=== PATIENT | male | born 1945 | race Two or more races ===

== ENCOUNTER 2025-03-17 01:30 | Inpatient (IN) | payer MEDICARE, SELFPAY ==
[2025-03-17] VITALS (13 sets, daily range): BP systolic 114–139; BP diastolic 58–87; PULSE 62–76; RESP 12–20; TEMP 36.3–37.1; O2SAT 97–100; BMI 23.4
--- NOTE | 2025-03-17 01:34 | EKG_ITS ---
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
--- NOTE | 2025-03-17 01:54 | PD.EDABDPN ---
ED Abdominal Pain RME/HPI General Chief Complaint: Abdominal Pain Stated complaint: ABD PAIN Time seen by provider: 03/17/25 01:51 Arrival date/time: 03/17/25 01:30 RME / HPI RME / HPI narrative: DR. ESTEVEZ MAIN ED EVALUATION: Patient with previous upper GI bleed documenting acute gastritis and multiple distal esophageal ulcers presents with recurrent upper mid-epigastric abdominal pain associated with gross hematemesis, per paramedics. No dizziness, light headedness, or near-syncope. No melena or metechezia reported. Additionally, no chest pain no shortness of breath. PMH: HTN, Gall Bladder Disease, BPH, Previous Upper GI Bleed, BL Hydronephrosis, UTI PSH: Hx of Alcohol Abuse Disorder Allergies: None Social: Positive Alcohol and Tobacco, No illicit drug abuse Related Data Home Medications ?Medication ?Instructions ?Recorded ?Confirmed finasteride 5 mg tablet 5 mg PO QDAY 01/14/21 10/17/22 tamsulosin 0.4 mg capsule 0.4 mg PO QHS 01/14/21 10/17/22 Previous Rx's ?Medication ?Instructions ?Recorded pantoprazole 40 mg tablet,delayed 40 mg PO QDAY #30 tabs 08/30/20 release (Protonix) Allergies Allergy/AdvReac Type Severity Reaction Status Date / Time No Known Allergies Allergy Verified 03/17/25 01:35 Review of Systems Review of Systems Systems Reviewed: All systems reviewed, normal except as documented Past Medical History Past Medical History CARDIAC: Positive Hypertension GASTROINTESTINAL: Positive Gall Bladder Disease and Gastrointestinal Bleed GENITOURINARY: Positive Benign Prostatic Hyperplasia Social History SMOKING STATUS: Current some day smoker ALCOHOL: Current ED Exam Narrative Physical exam: GEN. APPEARANCE: The patient is alert awake oriented X-3, tearful, in moderate distress, c/o primarily of mid-epigastric abdominal pain, does not look ill/toxic. Patient has good eye contact. Patient is cooperative. VITALS: All vitals were reviewed and the pulse ox is 100%, which is normal according to my interpretation HEENT: Normocephalic, atraumatic and nontender. Pupils are equal and reactive. Oral mucosa is moist. NECK: Supple, nontender, no meningismus, no JVD. There is no thyromegaly and no lymphadenopathy. CHEST: Nontender on palpation no deformity and no crepitus. CARDIOVASCULAR: Heart regular rhythm, no murmur or gallop rub or extra beats. LUNGS: Clear to auscultation bilaterally with symmetrical chest rise. No laboring tachypnea or wheezing. No intercostal subcostal retraction. No rales and no rhonchi. ABDOMEN: Soft, flat, point mid-epigastric tenderness with acute peritoneal findings. There are no abnormal masses palpated. No pulsatile masses or bruits. Active and normal bowel sounds. RECTAL: Hemmocult EXTREMITIES: Normal inspection and palpation. No edema. No cyanosis. Patient is able to move all 4 extremities well SKIN: Warm and dry, no rashes noted. MUSCULOSKELETAL: No lumbar or midline bony tenderness. There is no CVA tenderness. No paraspinal muscle spasm or tenderness. NEURO: Cranial nerves II through XII grossly intact. There are no focal neurologic deficits noted. GCS is 15 PSYCHIATRIC: Patient is in normal mood and affect, cooperative. LYMPHATICS: No major lymphadenopathy noted. Course Quality Measures none Orders Category Date Time Status COVID-19 Screening Questionnaire NOW Care 03/17/25 04:[address] Screening NOW Care 03/17/25 02:03 Active Online Affiliate Marketing Manager Q4H START 00 Care 03/17/25 01:51 Active EKG (ED ONLY) *Do not use* NOW Care 03/17/25 01:[address] abdomen pelvis w con Stat Exams 03/17/25 02:01 Taken EKG (ED Only) Stat Exams 03/17/25 01:34 Draft Alcohol, Blood Medical Stat Lab 03/17/25 02:00 Completed CBC Stat Lab 03/17/25 02:00 Completed CMP [Comprehensive Metabolic Panel] Stat Lab 03/17/25 02:00 Completed Mag [Magnesium] Stat Lab 03/17/25 02:00 Completed Troponin I Stat Lab 03/17/25 02:00 Completed Type and Screen Stat Lab 03/17/25 02:11 Completed UA, C/S IF [Urinalysis, C/S if Indicated] Stat Lab 03/17/25 02:50 Completed Morphine* Inj Med 03/17/25 01:52 Discontinued 4 mg IVP X1 ONE Pantoprazole Inj [Protonix Inj] Med 03/17/25 01:52 Discontinued 80 mg IVP X1 ONE Pantoprazole/Ns 80Mg IV Premix [Protonix/NS 80mg IV Med 03/17/25 01:53 Active Premix] 80 mg in 100 ml IV Q10H Prochlorperazine Inj [Compazine Inj] Med 03/17/25 01:52 Discontinued 2.5 mg IV X1 ONE Sodium Chloride 0.9% 1000 ml [Ns] 1,000 ml Med 03/17/25 01:52 Discontinued IV 999 mls/hr Vital Signs Vital signs: Vital Signs Temperature 98.6 F 03/17/25 01:44 Pulse Rate 67 03/17/25 01:44 Respiratory Rate 18 03/17/25 01:44 Blood Pressure 139/87 H 03/17/25 01:44 Pulse Oximetry (%) 100 03/17/25 01:44 Oxygen Delivery Method Room Air 03/17/25 01:44 PROCEDURES: Stool Hemoccult Procedural Steps Taken: stool placed in appropriate test area, developer placed on stool and control areas and controls appropriately positive and negative Abdominal Pain MDM MDM Narrative MDM Narrative:: Scribe Attestation: Coleen Holder am scribing for and in the presence of Dr. Estevez. Provider Notation: Although this document has been carefully reviewed, there may still be some phonetic and other typographical errors. These errors are purely grammatical due to imperfections in the software program and should not be construed in any way to compromise the substance of the patient's medical care during this visit. Patient with previous upper GI bleed documenting acute gastritis and multiple distal esophageal ulcers presents with recurrent upper mid-epigastric abdominal pain associated with gross hematemesis, per paramedics. No dizziness, light headedness, or near-syncope. Please see PE findings. Laboratory markers, including CBC, demonstrates WBC of 11.7, hemoglobin of 12.9 (baseline 9-10), no thrombocytopenia. Serum chemistries demonstarte slightly low Potassium of 3.3 and mildly elevated blood sugar of 137. UA without infection. Ethanol undetected. COVID negative. Patient placed on lock expert, IV established, and patient fluid resuscitated with saline, administered both low-dose narcotic analgesics/anti-emetics, Protonix drip instituted after bolus. On serial evaluation, patient is resting comfortably reporting overall improvement and remained hemodynamically stable. CT scan currently pending. Will discuss with hospitalist for consideration of observational admission. Patient will be admitted to hospitalist service. Patient data External records reviewed:: [facility] previous records (Reviewed prior ED records from 04/25/21. Patient was seen for Johns catheter problem.) and EMS form Clinical information provided by:: patient and EMS Social determinants that could affect healthcare access:: alcohol use Patient has the following chronic illnesses:: Alcohol Abuse Disorder, Hypertension, Gall Bladder Disease, Gastrointestinal Bleed, Benign Prostatic Hyperplasia How is presenting disease/condition affected by chronic disease/condition?: exacerbated by Evaluation data The following diagnostics were reviewed and interpreted by me:: lab results and EKG tracing(s) (EKG demonstrates sinus rhythm with 1st grade AV block, with rate of [address] segment changes, no ventricular ectopy, axis leftward, intervals normal, per my interpretation.) Lab and/or radiology exams considered but not ordered:: None Interpretation Summary: RADIOLOGY Abdomen/Pelvis CT: Findings: Subsegmental atelectasis is seen at the visualized lung bases. There is no pleural effusion. The gallbladder is surgically absent. Mild fatty infiltration of the liver is seen. There is mild surface nodularity of the liver, which may be related to mild chronic liver parenchymal disease. The spleen, adrenals, and pancreas are unremarkable. There is bilateral renal scarring. Mild atrophic changes are seen in the right kidney. Small bilateral renal cysts are seen. There are extrarenal pelves of the kidneys bilaterally. Symmetrical bilateral mild hydroureteronephrosis is seen, which may be related to back pressure from the overdistended urinary bladder. There is a large hiatal hernia containing stomach. There is thickening of the distal esophagus/GE junction which may indicate reflux/esophagitis. There is focal abrupt narrowing of the distal stomach along the hiatal hernia with an overdistended, fluid-filled proximal segment. The distal non-herniated stomach is not dilated. The small bowel loops are mildly prominent, non-specific. The appendix is within normal limits on axial images 93-103/258. A moderate amount of fecal material is seen in the colon. There are multiple colonic diverticula without evidence of diverticulitis. The urinary bladder is overdistended, demonstrating multiple trabeculations. There is also a large diverticulum along the right posterolateral wall of the urinary bladder. There is prostatomegaly. There is no free fluid, free air, or abscess. The abdominal aorta and its branches demonstrate atheromatous changes without aneurysm. There is diffuse osteopenia with a heterogeneous marrow pattern of the osseous structures. Degenerative changes are seen in the spine. 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 There is grade I anterolisthesis of L5 on S1. Impression: Large hiatus hernia with obstruction of the distal stomach. Recommend clinical correlation. Consider upper GI examination for further evaluation if clinically feasible Colonic diverticulosis without diverticulitis. Urinary bladder wall trabeculation, which may be sequelae of chronic bladder outlet obstruction or prostatomegaly. Large urinary bladder diverticulum on the right. Mild bilateral hydroureteronephrosis may be related to urinary bladder distention. Multiple other findings as described above. Medications / Prescriptions Medications or Prescriptions considered but not ordered:: None Medication administrations:: Medication Administration History Pantoprazole Sodium (Protonix/Ns 80mg Iv Premix) 80 mg in 100 mls @ 10 mls/hr IV Q10H RACQUEL Stop: 03/19/25 23:52 Last Admin: 03/17/25 02:04 Dose: 10 mls/hr Documented By: KRYSTAL Discontinued Medications Sodium Chloride (Ns) 1,000 mls @ 999 mls/hr IV .Q1H1M ONE Stop: 03/17/25 02:52 Last Infusion: 03/17/25 03:13 Dose: Infused Documented By: Admin: 03/17/25 02:01 Dose: 999 mls/hr Documented By: KRYSTAL Morphine Sulfate (Morphine Sulf Inj 4 Mg/Ml Vial) 4 mg IVP X1 ONE Stop: 03/17/25 01:53 Last Admin: 03/17/25 02:01 Dose: 4 mg Documented By: KRYSTAL Pantoprazole Sodium (Pantoprazole Inj 40 Mg Vial) 80 mg IVP X1 ONE Stop: 03/17/25 01:53 Last Admin: 03/17/25 02:03 Dose: 80 mg Documented By: KRYSTAL Prochlorperazine Edisylate (Prochlorperazine Inj 5 Mg/Ml Vial 2 Ml) 2.5 mg IV X1 ONE; Protocol Stop: 03/17/25 01:53 Last Admin: 03/17/25 02:01 Dose: 2.5 mg Documented By: SM See above fi any Consultations Consultation(s) initiated? (list below): Yes Consultation #1 (Physician, Specialty, Details): Discussed with Dr. Mayfield for admission. Reviewed the patient?s HPI, PMHx, lab and/or radiology results. Discussed treatment plan. Will consult an admission to the hospitalist. Time: 04:57 Diagnosis Differential diagnosis abdominal pain: other (Peptic Ulcers, Gastritis, GERD, Esophageal Varices, Valle's Esophagitis) Most likely diagnosis given after review of the tests above:: Diverticulitis Admission Indicated Admission indicated?: indicated Explain why admission is indicated or not indicated:: Diverticulitis Admission Request Was there a request for admission?: Yes Admission Attestation Admission request attestation: Discussed case with [] from Hospitalist service regarding admission. Discussed patients ED course, exam findings, labs, and radiology results. The Hospitalist [agrees,declines] to accept the patient for admission. Disposition Plan Disposition Plan: Admit Critical Care Time Critical Care Time Critical Care Time: Yes Total Critical Care Time (min.): 40 Attestation: The high probability of sudden, clinically significant deterioration in the patient?s condition required the highest level of my preparedness to intervene urgently. The services I provided to this patient were to treat and/or prevent clinically significant deterioration. Services included the following: chart data review, reviewing nursing notes and/or old charts, documentation time, sap payroll consultant collaboration regarding findings and treatment options, medication orders and management, direct patient care, vital sign assessments and ordering, interpreting and reviewing diagnostic studies and lab tests. Aggregate critical care time includes only time during which I was engaged in work directly related to the patient?s care, as described above, whether at bedside or elsewhere in the Emergency Department. It did not include time spent performing other reported procedures or the services of residents, students, nurses or physician assistants. Discharge Plan Plan Patient Disposition: Admit Acute Care w/in Hospital Prescriptions/Referrals Prescriptions/Med Rec: No Action tamsulosin 0.4 mg capsule 0.4 mg PO QHS finasteride 5 mg tablet 5 mg PO QDAY pantoprazole [Protonix] 40 mg Tablet,Delayed Release (Dr/Ec) 40 mg PO QDAY Qty: 30 2RF Referrals: No Primary/Family,Physician [Primary Care Provider] - In 1 week Problem List Clinical Impression: Diverticulitis Patient/Caregiver Discharge Instructions Print Language: Serbian Stand Alone Forms: [employer] Award Info., Patient Portal Info Letter
[2025-03-17] MEDS: MORPHINE SULF INJ 4 MG/ML VIAL IVP (02:01)
[2025-03-17] MEDS: PROCHLORPERAZINE INJ 5 MG/ML VIAL 2 ML 2.5 MG IV (02:01)
[2025-03-17] MEDS: SODIUM CHLORIDE 0.9% 1000 ML 1,000 ML 999 ML IV (02:01)
--- NOTE | 2025-03-17 02:01 | XR_ITS ---
Examination: CT abdomen with intravenous contrast CT pelvis with intravenous contrast 2-D coronal reconstructions 2-D sagittal reconstructions Date and time of exam: March 17, 2025, 0347 hours, comparison September 07, 2020 INDICATIONS: Abdominal pain onset today, clinical diagnosis gastric perforation. CTDI: vol (mGy) 5.41 DLP: (mGycm) 298 Technique: Multiple axial sections of the abdomen and pelvis have been obtained. 64 slice high-resolution scanner used. 3 mm axial sections have been obtained, post intravenous injection 60 cc [id number] 2-D sagittal, coronal reconstructions obtained. Low dose protocols were performed. One or more of the following dose reduction techniques were used; automated exposure control, adjustment of the mA and/or KV according to patient size, use of iterative reconstruction technique. Findings: Large retrocardiac gastric hernia Minor atelectasis in the lower lung zones No focal liver lesions Absent gallbladder. Spleen not enlarged Common bile duct 7 mm no common bile duct stones No pancreatic edema Significant bilateral renal scarring Mild bilateral hydronephrosis Aorta normal size Mildly fluid distended small bowel loops Normal appendix Colonic diverticulosis, no diverticulitis 7.4 cm bladder diverticulum Urinary bladder wall irregular in contour AP prostate dimension 4.7 cm Severe osteopenia with diffuse moderate to advanced lumbar degenerative disc disease most severe at L5-S1 IMPRESSION: Large retrocardiac gastric hernia No common bile duct stones noted Significant bilateral renal scarring Mild bilateral hydronephrosis, likely secondary to distended urinary bladder Normal appendix Colonic diverticulosis, no diverticulitis Large bladder diverticulum Urinary bladder irregular in contour, consider cystitis
[2025-03-17] MEDS: PANTOPRAZOLE/NS 80MG IV PREMIX 80 MG/100 ML BAG 10 MG IV ×3 (02:04→20:02)
[2025-03-17 02:40] LABS: Basophils # (Auto) 0.1 Thou/mm3 (0.0-0.2); Basophils % (Auto) 1 % (0-2.5); Eosinophils # (Auto) 0.2 Thou/mm3 (0.0-0.5); Eosinophils % (Auto) 1 % (0-10); Hematocrit 36.2 % (41.0-53.0); Hemoglobin 12.9 g/dL (13.5-16.0); Immature Granulocytes Auto 0.06 Thou/mm3 (0.00-0.00); Lymphocytes # (Auto) 1.3 Thou/mm3 (1.0-4.8); Lymphocytes % (Auto) 11 % (10-50); Mean Corpuscular HGB Conc 35.6 g/dl (31.0-37.0); Mean Corpuscular Hemoglobin 31.4 pg (25.0-35.0); Mean Corpuscular Volume 88 fL (80-100); Monocytes # (Auto) 1.1 Thou/mm3 (0.0-0.8); Monocytes % (Auto) 9 % (0-12); Neutrophils # (Auto) 9.0 Thou/mm3 (1.8-7.7); Neutrophils % (Auto) 77 % (37-80); Nucleated Red Blood Cell # 0.00 Thou/mm3 (0.00-0.00); Nucleated Red Blood Cell % 0 /100 WBC (0); Platelet Count 348 Thou/mm3 (140-440); RDW Standard Deviation 37.5 fL (35.1-43.9); Red Blood Count 4.11 Miln/mm3 (4.50-5.90); White Blood Count 11.7 Thou/mm3 (3.8-10.6)
[2025-03-17 03:25] LABS: Alanine Aminotransferase 17 U/L (10-49); Albumin, Serum 4.1 gm/dL (3.4-4.8); Albumin/Globulin Ratio 1.8 (1.2-2.2); Alcohol, Blood Medical < 3.0 mg/dL (0-10.0); Alkaline Phosphatase 65 U/L (46-116); Anion Gap 12 (7-16); Aspartate Amino Transferase 29 U/L (0-34); BUN/Creatinine Ratio 14 Ratio (12-20); Bilirubin,Total 0.7 mg/dL (0.3-1.2); Blood Urea Nitrogen 14 mg/dL (9-23); Calcium 9.2 mg/dL (8.3-10.6); Calcium (Corrected) 9.2 mg/dL (8.5-10.1); Carbon Dioxide 31.0 mMol/L (20.0-31.0); Chloride 88 mMol/L (98-107); Creatinine (Component) 1.0 mg/dL (0.6-1.3); Estimated Creatinine Clearance 43.1 mL/min (>60); Globulin 2.3 gm/dL (2.3-3.5); Glucose 137 mg/dL (74-106); Magnesium 1.7 mg/dL (1.6-2.6); Osmolality,Calculated 265 (275-295); Potassium 3.3 mMol/L (3.4-5.1); Sodium 131 mMol/L (136-145); Total Protein 6.4 gm/dL (5.7-8.2); Troponin I < 0.020 ng/mL (0.0-0.045); eGFR > 60 See Note
[2025-03-17 03:28] LABS: Collection Type, Urine Clean Catch; Squamous Epithelial Cell,Urine 0 /hpf (0-5)
[2025-03-17 03:37] LABS: Bilirubin,Urine Negative (Negative); Blood,Urine Negative (Negative); Clarity,Urine Clear (Clear/Hazy); Color,Urine Colorless (Lt Yel-Yel); Culture Indicated,Urine Not Indicated; Glucose, Urine Negative (Negative); Ketones,Urine Trace (Negative); Leukocyte Esterase,Urine Negative (Negative); Nitrite,Urine Negative (Negative); PH,Urine 8.0 (5.0-7.0); Protein,Urine Negative (Neg - Trace); RBC,Urine 1 /hpf (0-3); Specific Gravity,Urine 1.009 (1.001-1.035); Urobilinogen,Urine Negative mg/dL (0.0-1.0); WBC,Urine 2 /hpf (0-5)
--- NOTE | 2025-03-17 05:06 | PRELIM_ITS ---
CT scan of the abdomen and pelvis with intravenous contrast (axial sections with sagittal and coronal reformats); dated March 17, 2025 at 03:47 hours Clinical History: Rule out gastric perforation. Comparison: Reference is made to the prior report dated August 29, 2020. Findings: Subsegmental atelectasis is seen at the visualized lung bases. There is no pleural effusion. The gallbladder is surgically absent. Mild fatty infiltration of the liver is seen. There is mild surface nodularity of the liver, which may be related to mild chronic liver parenchymal disease. The spleen, adrenals, and pancreas are unremarkable. There is bilateral renal scarring. Mild atrophic changes are seen in the right kidney. Small bilateral renal cysts are seen. There are extrarenal pelves of the kidneys bilaterally. Symmetrical bilateral mild hydroureteronephrosis is seen, which may be related to back pressure from the overdistended urinary bladder. There is a large hiatal hernia containing stomach. There is thickening of the distal esophagus/GE junction which may indicate reflux/esophagitis. There is focal abrupt narrowing of the distal stomach along the hiatal hernia with an overdistended, fluid-filled proximal segment. The distal non-herniated stomach is not dilated. The small bowel loops are mildly prominent, non-specific. The appendix is within normal limits on axial images 93-103/258. A moderate amount of fecal material is seen in the colon. There are multiple colonic diverticula without evidence of diverticulitis. The urinary bladder is overdistended, demonstrating multiple trabeculations. There is also a large diverticulum along the right posterolateral wall of the urinary bladder. There is prostatomegaly. There is no free fluid, free air, or abscess. The abdominal aorta and its branches demonstrate atheromatous changes without aneurysm. There is diffuse osteopenia with a heterogeneous marrow pattern of the osseous structures. Degenerative changes are seen in the spine. 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 There is grade I anterolisthesis of L5 on S1. Impression: Large hiatus hernia with obstruction of the distal stomach. Recommend clinical correlation. Consider upper GI examination for further evaluation if clinically feasible Colonic diverticulosis without diverticulitis. Urinary bladder wall trabeculation, which may be sequelae of chronic bladder outlet obstruction or prostatomegaly. Large urinary bladder diverticulum on the right. Mild bilateral hydroureteronephrosis may be related to urinary bladder distention. Multiple other findings as described above. Report Electronically Signed By: Jordan Hobson 03/17/2025 5:06:19 AM [EST]
--- NOTE | 2025-03-17 05:45 | PD.RESHP ---
Documentation for date of: 03/17/25 HPI History of Present Illness History of present illness: Mr. Hollis is a 79 y/o male with PMH EtOH use disorder, esophageal varices, and gastritis who presented to the ED 03/16 with 6-7 episodes of coffee ground emesis and epigastric pain x 1 day. Patient drinks 6-7 beers per day and a shot of tequila in his coffee every morning. He is a poor historian and no family is at bedside to provide supplemental history. Denies melena, hematocheznia, change in bowel movements. ED course: VSS. Labs significant for WBC 11.7, hgb 12.9. HCT 36.2, Na 131, K 3.3, Cl 88. Coags and LFTs WNL. UA negative for UTI. EKG showed afib, HR 75, QTc 498. CT a/p showed large hiatal hernia w/ obstruction of distal stomach. Colonic diverticulosis w/o diverticulitis. 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 Mild b/l hydroureteronephrosis. Given 1L NS, morphine, prochlorperazine, pantoprazole IV. PMHx: EtOH use disorder, esophageal varices, gastritis Allergies: NKDA Home meds: Pt denies taking any medications at home SgHx: none reported SHx: 6-7 beers per day, shot of tequila in coffee daily. 2-3 cigarettes per day. Denies recreational drug use. FHx: none reported Review of Systems Review of Systems Narrative Review of Systems: 14 point ROS negative other than HPI Exam Vital Signs Temp Pulse Resp BP Pulse Ox O2 Del Method O2 Flow Rate 98.7 F 76 18 121/67 100 Nasal Cannula 3 03/17/25 04:17 03/17/25 04:17 03/17/25 04:17 03/17/25 04:17 03/17/25 04:17 03/17/25 04:17 03/17/25 04:17 Narrative Exam General: No acute distress Eye: PERRL, EOMI, normal conjunctiva, no scleral icterus HENT: Normocephalic, atraumatic, normal hearing, moist oral mucosa Neck: Supple, non-tender, no JVD, no lymphadenopathy Lungs: Clear to auscultation bilaterally, non-labored respirations, symmetric chest rise, no use of accessory muscles Heart: Normal S1 and S2, no S3 or S4 appreciated. Normal rate and regular rhythm, no murmurs, rubs gallops, or edema. Peripheral pulses intact bilaterally, capillary refill brisk distally Abdomen: Soft, TTP epigastric, non-distended, normal bowel sounds. No guarding or rebound tenderness. Musculoskeletal: Normal range of motion and strength, no tenderness or swelling Skin: Skin is warm, dry, no rashes or lesions. Neurologic: Alert, awake and oriented x3. CN II-XII grossly intact. No focal neuro deficits. No signs of meningeal irritation noted. Psychiatric: Cooperative, appropriate mood and affect Results: Labs 03/17/25 06:14 03/17/25 06:14 Labs: Short CBC 03/17/25 Range/Units 02:00 WBC 11.7 H (3.8-10.6) Thou/mm3 Hgb 12.9 L (13.5-16.0) g/dL Hct 36.2 L (41.0-53.0) % Plt Count 348 (140-440) Thou/mm3 BMP 03/17/25 02:00 Sodium 131 L Potassium 3.3 L Chloride 88 L Carbon Dioxide 31.0 BUN 14 Creatinine 1.0 Glucose 137 H Calcium 9.2 Cardiac Enzymes 03/17/25 Range/Units 02:00 Troponin I < 0.020 (0.0-0.045) ng/mL Liver Function 03/17/25 Range/Units 02:00 Total Bilirubin 0.7 (0.3-1.2) mg/dL AST 29 (0-34) U/L ALT 17 (10-49) U/L Alkaline Phosphatase 65 (46-116) U/L Albumin 4.1 (3.4-4.8) gm/dL Urine 03/17/25 Range/Units 02:50 Urine Color Colorless A (Lt Yel-Yel) Urine Clarity Clear (Clear/Hazy) Urine pH 8.0 H (5.0-7.0) Ur Specific [place] 1.009 (1.001-1.035) Urine Protein Negative (Neg - Trace) Urine Glucose (UA) Negative (Negative) Quality Measures Quality Measures VTE prophylaxis Advance care planning discussed with:: patient Medications Home Medications and Allergies Home Medications ?Medication ?Instructions ?Recorded ?Confirmed ?Type tamsulosin 0.4 mg capsule 0.4 mg PO QHS 01/14/21 03/17/25 History Allergies Allergy/AdvReac Type Severity Reaction Status Date / Time No Known Allergies Allergy Verified 03/17/25 01:35 Visit Medications Acetaminophen (Acetaminophen 325 Mg Tablet) 650 mg PO Q6H PRN PRN Reason: Fever >100.3 Stop: 04/16/25 05:37 Acetaminophen (Acetaminophen 325 Mg Tablet) 650 mg PO Q6H PRN PRN Reason: PAIN SCALE 1-3 (mild Stop: 04/16/25 05:37 Folic Acid (Folic Acid 1 Mg Tablet) 1 mg PO BID [facility] Stop: 03/22/25 08:59 Pantoprazole Sodium (Protonix/Ns 80mg Iv Premix) 80 mg in 100 mls @ 10 mls/hr IV Q10H RACQUEL Stop: 03/19/25 23:52 Last Admin: 03/17/25 02:04 Dose: 10 mls/hr Octreotide Acetate 1,000 mcg/ (Sodium Chloride) 102 mls @ 5.1 mls/hr IV .Q20H RACQUEL; Protocol Stop: 03/22/25 05:41 Octreotide Acetate 1,000 mcg/ (Sodium Chloride) 102 mls @ 5.1 mls/hr IV .Q20H ONE; Protocol Stop: 03/18/25 01:40 Thiamine HCl 500 mg/ Sodium (Chloride) 105 mls @ 205 mls/hr IV X1 ONE Stop: 03/17/25 06:13 Lorazepam (Lorazepam 0.5 Mg Tablet) 0.5 mg PO Q4HR PRN PRN Reason: CIWA Score 2-6 Stop: 03/22/25 05:37 Lorazepam (Lorazepam 0.5 Mg Tablet) 1 mg PO Q4HR PRN PRN Reason: CIWA SCORE 7-13 Stop: 03/22/25 05:37 Lorazepam (Lorazepam 0.5 Mg Tablet) 2 mg PO Q4HR PRN PRN Reason: CIWA SCORE 14-20 Stop: 03/22/25 05:37 Ondansetron HCl (Ondansetron Inj 2 Mg/Ml Inj 2 Ml) 4 mg IVP Q6H PRN; Protocol PRN Reason: NAUSEA OR VOMITING Stop: 04/16/25 05:37 Thiamine HCl (Thiamine 100 Mg Tablet) 100 mg PO BID RACQUEL Stop: 03/22/25 08:59 Discontinued Medications Sodium Chloride (Ns) 1,000 mls @ 999 mls/hr IV .Q1H1M ONE Stop: 03/17/25 02:52 Last Infusion: 03/17/25 03:13 Dose: Infused Morphine Sulfate (Morphine Sulf Inj 4 Mg/Ml Vial) 4 mg IVP X1 ONE Stop: 03/17/25 01:53 Last Admin: 03/17/25 02:01 Dose: 4 mg Pantoprazole Sodium (Pantoprazole Inj 40 Mg Vial) 80 mg IVP X1 ONE Stop: 03/17/25 01:53 Last Admin: 03/17/25 02:03 Dose: 80 mg Pantoprazole Sodium (Pantoprazole Inj 40 Mg Vial) 40 mg IVP BID RACQUEL Stop: 04/16/25 08:59 Prochlorperazine Edisylate (Prochlorperazine Inj 5 Mg/Ml Vial 2 Ml) 2.5 mg IV X1 ONE; Protocol Stop: 03/17/25 01:53 Last Admin: 03/17/25 02:01 Dose: 2.5 mg Assessment & Plan Plan Mr. Hollis is a 79 y/o male with PMH EtOH use disorder, esophageal varices, and gastritis who presented to the ED 03/16 with 6-7 episodes of coffee ground emesis and epigastric pain x 1 day. Admitted for GI bleed. #GI bleed, upper #EtOH use disorder #Esophageal varices #Gastritis #Large hiatal hernia #Obstruction of distal stomach #Normocytic anemia 6-7 episodes coffee ground emesis and epigastric pain x1 days. AOx3, no ascites appreciated on exam. Hgb stable, on admit 12.9, HCT 36.2 CT a/p showed large hiatal hernia w/ obstruction of distal stomach. Colonic diverticulosis w/o diverticulitis. 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 Mild b/l hydroureteronephrosis Plan: - Consulted GI, appreciate recs - Pantoprazole 80 mg IV q10h - Octreotide gtt - Zofran PRN - Consider NG tube for nausea and voimiting (Currently patient not having any) - CIWA - Folic acid and thiamine. Given 1x dose thiamine 500 mg IV. - Ceftriaxone 1gr QdaY - Pending UDS, lipid panel - CTM hgb with daily CBC. Transfuse pRBC if hgb <7 #Afib Seen on EKG, rate controlled, not on home meds Plan: - Hold anticoagulation given GI bleed #Mild leukoctyosis On admit 11.7 i/s/o GI bleed Plan: - CTM with daily CBC Checklist Dispo: Admit to tele, possible EGD Diet: NPO Bowel Reg: n/a VTE ppx: SCD GI ppx: pantoprazole IV Pain mgmt: Tylenol PRN Code status: full Plan discussed with Dr. Mayfield and Dr. Cathy Schrader MD PGY1 Attending Provider Attestation/Addendum After examination of the patient and review of the clinical data I feel that this patient needs admission to the hospital for further treatment/evaluation. Plan of care discussed with patient and is in agreement. I Jennifer Morgan MD, attest that I was physically present for weathers portions of evaluation, and examined patient, labs and imagings and plan of care were discussed with IM residents team, and I agree with the findings and plans documented above.
[2025-03-17] MEDS: THIAMINE INJ 500 MG in SODIUM CHLORIDE 0.9% 100 ML 205 MG IV (05:59)
[2025-03-17 06:23] LABS: Basophils # (Auto) 0.0 Thou/mm3 (0.0-0.2); Basophils % (Auto) 0 % (0-2.5); Eosinophils # (Auto) 0.0 Thou/mm3 (0.0-0.5); Eosinophils % (Auto) 0 % (0-10); Hematocrit 35.0 % (41.0-53.0); Hemoglobin 12.1 g/dL (13.5-16.0); Immature Granulocytes Auto 0.06 Thou/mm3 (0.00-0.00); Lymphocytes # (Auto) 0.8 Thou/mm3 (1.0-4.8); Lymphocytes % (Auto) 8 % (10-50); Mean Corpuscular HGB Conc 34.6 g/dl (31.0-37.0); Mean Corpuscular Hemoglobin 31.3 pg (25.0-35.0); Mean Corpuscular Volume 91 fL (80-100); Monocytes # (Auto) 0.8 Thou/mm3 (0.0-0.8); Monocytes % (Auto) 8 % (0-12); Neutrophils # (Auto) 8.5 Thou/mm3 (1.8-7.7); Neutrophils % (Auto) 83 % (37-80); Nucleated Red Blood Cell # 0.00 Thou/mm3 (0.00-0.00); Nucleated Red Blood Cell % 0 /100 WBC (0); Platelet Count 245 Thou/mm3 (140-440); RDW Standard Deviation 39.6 fL (35.1-43.9); Red Blood Count 3.86 Miln/mm3 (4.50-5.90); White Blood Count 10.2 Thou/mm3 (3.8-10.6)
[2025-03-17] MEDS: OCTREOTIDE ACET INJ 1,000 MCG in SODIUM CHLORIDE 0.9% 100 ML 5.1 MCG IV (06:30)
[2025-03-17 06:43] LABS: INR 1.0 (0.9-1.3); Partial Thromboplastin Time 29.6 Seconds (22.0-36.0); Prothrombin Time 11.0 Seconds (9.0-12.2)
[2025-03-17 06:45] LABS: Anion Gap 6 (7-16); BUN/Creatinine Ratio 23 Ratio (12-20); Blood Urea Nitrogen 18 mg/dL (9-23); Calcium 8.2 mg/dL (8.3-10.6); Carbon Dioxide 26.6 mMol/L (20.0-31.0); Cardiac Risk Estimate 2.1 RATIO (4.0-6.7); Chloride 98 mMol/L (98-107); Cholesterol 157 mg/dL (132-200); Creatinine (Component) 0.8 mg/dL (0.6-1.3); Estimated Creatinine Clearance 53.8 mL/min (>60); Glucose 144 mg/dL (74-106); HDL Cholesterol 75 mg/dL (40-60); LDL Cholesterol,Calculated 70 mg/dL (0-130); Magnesium 1.7 mg/dL (1.6-2.6); Osmolality,Calculated 267 (275-295); Phosphorous 3.1 mg/dL (2.4-5.1); Potassium 4.2 mMol/L (3.4-5.1); Sodium 131 mMol/L (136-145); Triglycerides 58 mg/dL (30-150); eGFR > 60 See Note
--- NOTE | 2025-03-17 08:41 | PC.CC ---
Pt is a 79 yo male who entered the hospital regarding GI concerns on 03/17/25. ASW attempted to meet with pt at bedside to complete this initial assessment, but was asleep. ASW called the pts named Ashley Hollis [phone] who is only [place] speaking and she reports she is the surrogate decision maker. Ashley states at one time the pt stated he was a DNR/DNI, but she does not know if that code still stands. Ashley states she would like SS to confirm the pts code with the pt once he is awake. Pts stated the pt does his own ADLs and does not use DME at home nor does he use O2. Per the , pt does not see a specialty doctor. Pts reports they reside in a home with no stairs. Pts stated that if pt is needing SNF upon d/c, they will make that decision at that time. Pts pharmacy is [facility] and his demographics are correct. Pt has full support from his and adult children. At the time of the initial assessment, there were no SS needs. However, pts would like SS to talk to pt about his Code choice. Surrogate Decision Maker: , Ashley Holils [phone] PCP: [facility] in [place] Code: Unsure-SS to confirm Transportation: will provide transportation upon d/c. Pt and are [place] speaking
--- NOTE | 2025-03-17 08:44 | PC.NURSE ---
PER DR. GARCIA, OK TO GIVE PO MEDS AT THIS TIME.
[2025-03-17] MEDS: FOLIC ACID 1 MG TABLET PO ×2 (08:47→20:02)
[2025-03-17] MEDS: THIAMINE 100 MG TABLET PO ×2 (08:47→20:02)
[2025-03-17] MEDS: TAMSULOSIN HCL 0.4 MG CAPSULE PO (08:47)
[2025-03-17] MEDS: cefTRIAXone/D5w 1gm IV premix 1 GM/50 ML BAG IV (08:51)
--- NOTE | 2025-03-17 10:37 | ESPR_ITS ---
<Statement entered by Siddhartha Hartman MD - 03/18/25 07:52> I saw and examined patient personally and supervised PGY 1 resident, Dr. Kirkpatrick with formulating a management plan. I agree with the documentation with the exceptions as listed below. Patient was admitted for acute blood loss anemia secondary to GI bleed for investigation. Currently n.p.o. and scheduled for EGD later today. Will monitor H&H and transfuse as necessary to maintain Hb >7. Plan of care discussed with Attending Dr. Bertha Hartman MD PGY 2 Disclaimer: This note was dictated by speech recognition. Minor errors in health information internship may be present due to voice recognition software. Documentation for date of: 03/17/25 Subjective Subjective Interval history: No overnight events. Patient was examined at bedside; they appear A&Ox3 and in NAD. Vitals/labs today significant for Hgb 12.1 and sodium 131. Patient is planned for possible EGD today to evaluate for active sites of bleeding and will be kept on Protonix and octreotide gtt. He will also be kept on CIWA protocol in light of his drinking history and be started on folic acid and thiamine supplementation. Exam Vital Signs Temp Pulse Resp BP Pulse Ox O2 Del Method O2 Flow Rate 98.6 F 69 17 132/68 H 100 Nasal Cannula 3 03/17/25 09:25 03/17/25 09:25 03/17/25 09:25 03/17/25 09:25 03/17/25 09:25 03/17/25 09:25 03/17/25 09:25 Narrative Exam General: No acute distress Eye: PERRL, EOMI, normal conjunctiva, no scleral icterus HENT: Normocephalic, atraumatic, normal hearing, moist oral mucosa Neck: Supple, non-tender, no JVD, no lymphadenopathy Lungs: Clear to auscultation bilaterally, non-labored respirations, symmetric chest rise, no use of accessory muscles Heart: Normal S1 and S2, no S3 or S4 appreciated. Normal rate and regular rhythm, no murmurs, rubs gallops, or edema. Peripheral pulses intact bilaterally, capillary refill brisk distally Abdomen: Soft, TTP epigastric, non-distended, normal bowel sounds. No guarding or rebound tenderness. Musculoskeletal: Normal range of motion and strength, no tenderness or swelling Skin: Skin is warm, dry, no rashes or lesions. Neurologic: Alert, awake and oriented x3. CN II-XII grossly intact. No focal neuro deficits. No signs of meningeal irritation noted. Psychiatric: Cooperative, appropriate mood and affect Objective Labs 03/18/25 04:20 03/18/25 04:20 Labs: Laboratory Results - last 24 hr 03/17/25 03/17/25 03/17/25 02:00 02:11 02:50 WBC 11.7 H RBC 4.11 L Hgb 12.9 L Hct 36.2 L MCV 88 MCH 31.4 MCHC 35.6 RDW Std Deviation 37.5 Plt Count 348 Neut % (Auto) 77 Lymph % (Auto) 11 [place] % (Auto) 9 Eos % (Auto) 1 Baso % (Auto) 1 Neut # (Auto) 9.0 H Lymph # (Auto) 1.3 [place] # (Auto) 1.1 H Eos # (Auto) 0.2 Baso # (Auto) 0.1 Immature Gran # (Auto) 0.06 H Absolute Nucleated RBC 0.00 Immature Gran % 1 H Nucleated RBC % 0 PT INR APTT Sodium 131 L Potassium 3.3 L Chloride 88 L Carbon Dioxide 31.0 Anion Gap 12 BUN 14 Creatinine 1.0 Estim Creat Clear Calc 43.1 L eGFR > 60 BUN/Creatinine Ratio 14 Glucose 137 H Calculated Osmolality 265 L Calcium 9.2 Corrected Calcium 9.2 Phosphorus Magnesium 1.7 Total Bilirubin 0.7 AST 29 ALT 17 Alkaline Phosphatase 65 Troponin I < 0.020 Total Protein 6.4 Albumin 4.1 Globulin 2.3 Albumin/Globulin Ratio 1.8 Triglycerides Cholesterol LDL Cholesterol, Calc HDL Cholesterol Cholesterol/HDL Ratio Ur Collection Type Clean Catch Urine Color Colorless A Urine Clarity Clear Urine pH 8.0 H Ur Specific [place] 1.009 Urine Protein Negative Urine Glucose (UA) Negative Urine Ketones Trace Urine Blood Negative Urine Nitrite Negative Urine Bilirubin Negative Urine Urobilinogen (Auto) Negative Ur Leukocyte Esterase Negative Urine RBC 1 Urine WBC 2 Ur Squamous Epith Cells 0 Urine Bacteria None Ur Culture Indicated? Not Indicated Ethyl Alcohol < 3.0 Blood Type A Positive Antibody Screen NEGATIVE Blood Bank Wristband ID Yes 03/17/25 06:14 WBC 10.2 RBC 3.86 L Hgb 12.1 L Hct 35.0 L MCV 91 MCH 31.3 MCHC 34.6 RDW Std Deviation 39.6 Plt Count 245 D Neut % (Auto) 83 H Lymph % (Auto) 8 L [place] % (Auto) 8 Eos % (Auto) 0 Baso % (Auto) 0 Neut # (Auto) 8.5 H Lymph # (Auto) 0.8 L [place] # (Auto) 0.8 Eos # (Auto) 0.0 Baso # (Auto) 0.0 Immature Gran # (Auto) 0.06 H Absolute Nucleated RBC 0.00 Immature Gran % 1 H Nucleated RBC % 0 PT 11.0 INR 1.0 APTT 29.6 Sodium 131 L Potassium 4.2 D Chloride 98 Carbon Dioxide 26.6 Anion Gap 6 L BUN 18 Creatinine 0.8 Estim Creat Clear Calc 53.8 L eGFR > 60 BUN/Creatinine Ratio 23 H Glucose 144 H Calculated Osmolality 267 L Calcium 8.2 L Corrected Calcium Phosphorus 3.1 Magnesium 1.7 Total Bilirubin AST ALT Alkaline Phosphatase Troponin I Total Protein Albumin Globulin Albumin/Globulin Ratio Triglycerides 58 Cholesterol 157 LDL Cholesterol, Calc 70 HDL Cholesterol 75 H Cholesterol/HDL Ratio 2.1 L Ur Collection Type Urine Color Urine Clarity Urine pH Ur Specific [place] Urine Protein Urine Glucose (UA) Urine Ketones Urine Blood Urine Nitrite Urine Bilirubin Urine Urobilinogen (Auto) Ur Leukocyte Esterase Urine RBC Urine WBC Ur Squamous Epith Cells Urine Bacteria Ur Culture Indicated? Ethyl Alcohol Blood Type Antibody Screen Blood Bank Wristband ID Quality Measures Quality Measures VTE prophylaxis Advance care planning discussed with:: patient Assessment & Plan Assessment Current Active Medications: Generic Name Dose Route Start Last Admin Trade Name Freq PRN Reason Stop Dose Admin Acetaminophen 650 mg 03/17/25 05:38 Acetaminophen 325 Mg Tablet PO 04/16/25 05:37 Q6H PRN Fever >100.3 Acetaminophen 650 mg 03/17/25 05:38 Acetaminophen 325 Mg Tablet PO 04/16/25 05:37 Q6H PRN PAIN SCALE 1-3 (mild Folic Acid 1 mg 03/17/25 09:00 03/17/25 08:47 Folic Acid 1 Mg Tablet PO 03/22/25 08:59 1 mg BID RACQUEL Administration Pantoprazole Sodium 80 mg in 100 mls @ 10 mls/hr 03/17/25 01:53 03/17/25 08:49 Protonix/Ns 80mg Iv Premix IV 03/19/25 23:52 0 mls/hr Q10H RACQUEL Infusion Octreotide Acetate 1,000 mcg/ 102 mls @ 5.1 mls/hr 03/17/25 05:41 03/17/25 06:30 Sodium Chloride IV 03/18/25 01:40 50 mcg/hr .Q20H RACQUEL 5.1 mls/hr Protocol Administration 50 MCG/HR Octreotide Acetate 1,000 mcg/ 102 mls @ 5.1 mls/hr 03/18/25 02:30 Sodium Chloride IV 03/22/25 06:29 .Q20H RACQUEL Protocol 50 MCG/HR Ceftriaxone Sodium/Dextrose 1 gm in 50 mls @ 100 mls/hr 03/17/25 08:30 03/17/25 08:51 Rocephin/D5w 1gm Iv Premix IV 03/24/25 08:29 100 mls/hr QDAY RACQUEL Administration Lorazepam 0.5 mg 03/17/25 05:38 Lorazepam 0.5 Mg Tablet PO 03/22/25 05:37 Q4HR PRN CIWA Score 2-6 Lorazepam 2 mg 03/17/25 06:49 Lorazepam 0.5 Mg Tablet PO 03/22/25 05:37 Q4HR PRN CIWA SCORE 14-17 Lorazepam 2 mg 03/17/25 06:47 Lorazepam 2 Mg/Ml Vial IVP 03/22/25 06:46 Q4HR PRN CIWA>17 Lorazepam 1 mg 03/17/25 06:52 Lorazepam 0.5 Mg Tablet PO 03/22/25 05:37 Q4HR PRN CIWA SCORE 7-13 Ondansetron HCl 4 mg 03/17/25 05:38 Ondansetron Inj 2 Mg/Ml Inj 2 Ml IVP 04/16/25 05:37 Q6H PRN NAUSEA OR VOMITING Protocol Tamsulosin HCl 0.4 mg 03/17/25 09:00 03/17/25 08:47 Tamsulosin Hcl 0.4 Mg Capsule PO 04/16/25 08:59 0.4 mg QDAY RACQUEL Administration Thiamine HCl 100 mg 03/17/25 09:00 03/17/25 08:47 Thiamine 100 Mg Tablet PO 03/22/25 08:59 100 mg BID RACQUEL Administration Plan Mr. Hollis is a 79 y/o male with PMH EtOH use disorder, esophageal varices, and gastritis who presented to the ED 03/16 with 6-7 episodes of coffee ground emesis and epigastric pain x 1 day. Admitted for GI bleed. #GI bleed, upper #EtOH use disorder #Esophageal varices #Gastritis #Large hiatal hernia #Obstruction of distal stomach #Normocytic anemia #Polysubstance abuse 6-7 episodes coffee ground emesis and epigastric pain x1 days. AOx3, no ascites appreciated on exam. Hgb stable, on admit 12.9, HCT 36.2 CT a/p showed large hiatal hernia w/ obstruction of distal stomach. Colonic diverticulosis w/o diverticulitis. 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 Mild b/l hydroureteronephrosis Dx: -03/17 admission UDS positive for opiates and amphetamine/methamphetamine but negative for alcohol -Lipid panel WNL Plan: - Patient is planned for possible EGD today to evaluate for active sites of bleeding - IV ceftriaxone 1 g qD - Pantoprazole 80 mg IV q10h - Octreotide gtt with blood glucose checks q6HR - Zofran PRN - CIWA - Folic acid and thiamine. Given 1x dose thiamine 500 mg IV. - CTM hgb with daily CBC. Transfuse pRBC if hgb <7 - Consulted GI, appreciate recs #Afib Seen on EKG, rate controlled, not on home meds Plan: - Hold anticoagulation given GI bleed #BPH Suspected from patient's home patient of tamsulosin Rx: -Restarted home PO tamsulosin 0.4 mg qD -Bladder scan QSHIFT -In and out catheter prn #Mild leukocytosis On admit 11.7 i/s/o GI bleed Plan: - CTM with daily CBC Checklist Dispo: Tele, possible EGD Diet: NPO Bowel Reg: n/a VTE ppx: SCD GI ppx: pantoprazole IV Pain mgmt: Tylenol PRN Code status: full Plan discussed with Dr. Hartman and Dr. Bertha Kirkpatrick DO (PGY-1) Attending Provider Attestation/Addendum I have seen and examined the patient. I was physically present for the weathers portions of the services provided including history, physical exam, diagnosis, treatment plans and orders. I agree with assessment and plan of care as documented by residents. Even though this this note was carefully revised there may still be minor errors in health information internship due to voice recognition software. Subash Bishwakarma, MD
--- NOTE | 2025-03-17 11:15 | ESCONSULT_ITS ---
HPI Data of Consult Requesting Physician: Nishant Stone MD Admitting Provider: Jennifer Morgan MD Attending Provider: Nishant Stone MD Primary Care Provider: Physician No Primary/Family Consult Narrative Reason for consult: coffee ground emesis History of present illness: HPI:A 79-year-old male patient known case of alcohol use disorder, BPH, esophageal ulcers, gastritis, came to the ED due to multiple episodes of coffee- ground emesis associated with epigastric pain for 1 day. Patient reported that the vomiting was severe and he was unable to eat or drink. Patient denied any jaundice, hematochezia, melena, constipation or diarrhea. Patient denied any history of liver disease in the past. Patient denied any similar episodes in the past. Patient vital stable, hemoglobin is 12.1 platelets 245, coagulation panel within normal limits, CMP showed normal liver liver enzymes and total bilirubin. CT scan of the abdomen showed large retrocardiac gastric hernia, bilateral hydronephrosis, colonic diverticulosis with no diverticulitis, large bladder diverticulum. PMH: As above Social hx: Alcohol: Drinks daily 6 beers a day, and shots in the morning and at night Allergies: No known allergies cc:: cc: Nishant Stone MD Exam Vital Signs Temp Pulse Resp BP Pulse Ox O2 Del Method O2 Flow Rate 98.6 F 69 17 132/68 H 100 Nasal Cannula 3 03/17/25 09:25 03/17/25 09:25 03/17/25 09:25 03/17/25 09:25 03/17/25 09:25 03/17/25 09:25 03/17/25 09:25 Narrative Exam GEN: AOx3, able to speak full sentences HEENT: NC/AC, PERRLA, oral mucosa moist, neck supple CVS: RRR, S1-S2 present, no murmurs appreciated RESP: CTAB GI: soft,non distended, non tender, NBS MSK: able to move all 4 limbs, no lower extremity edema SKIN: warm and dry FINAL CIGAR AND BOX EXAMINER: CN II-XII and Sensation grossly intact. Results Labs 03/19/25 04:53 03/19/25 04:53 Labs: Short CBC 03/17/25 03/17/25 Range/Units 02:00 06:14 WBC 11.7 H 10.2 (3.8-10.6) Thou/mm3 Hgb 12.9 L 12.1 L (13.5-16.0) g/dL Hct 36.2 L 35.0 L (41.0-53.0) % Plt Count 348 245 D (140-440) Thou/mm3 BMP 03/17/25 03/17/25 02:00 06:14 Sodium 131 L 131 L Potassium 3.3 L 4.2 D Chloride 88 L 98 Carbon Dioxide 31.0 26.6 BUN 14 18 Creatinine 1.0 0.8 Glucose 137 H 144 H Calcium 9.2 8.2 L Cardiac Enzymes 03/17/25 Range/Units 02:00 Troponin I < 0.020 (0.0-0.045) ng/mL Liver Function 03/17/25 Range/Units 02:00 Total Bilirubin 0.7 (0.3-1.2) mg/dL AST 29 (0-34) U/L ALT 17 (10-49) U/L Alkaline Phosphatase 65 (46-116) U/L Albumin 4.1 (3.4-4.8) gm/dL Urine 03/17/25 Range/Units 02:50 Urine Color Colorless A (Lt Yel-Yel) Urine Clarity Clear (Clear/Hazy) Urine pH 8.0 H (5.0-7.0) Ur Specific [place] 1.009 (1.001-1.035) Urine Protein Negative (Neg - Trace) Urine Glucose (UA) Negative (Negative) Quality Measures Quality Measures VTE prophylaxis Advance care planning discussed with:: patient Medications Home Medications and Allergies Home Medications ?Medication ?Instructions ?Recorded ?Confirmed ?Type tamsulosin 0.4 mg capsule 0.4 mg PO QHS 01/14/2103/17 History Allergies Allergy/AdvReac Type Severity Reaction Status Date / Time No Known Allergies Allergy Verified 03/17/25 01:35 Visit Medications Acetaminophen (Acetaminophen 325 Mg Tablet) 650 mg PO Q6H PRN PRN Reason: Fever >100.3 Stop: 04/16/25 05:37 Acetaminophen (Acetaminophen 325 Mg Tablet) 650 mg PO Q6H PRN PRN Reason: PAIN SCALE 1-3 (mild Stop: 04/16/25 05:37 Folic Acid (Folic Acid 1 Mg Tablet) 1 mg PO BID RACQUEL Stop: 03/22/25 08:59 Last Admin: 03/17/25 08:47 Dose: 1 mg Pantoprazole Sodium (Protonix/Ns 80mg Iv Premix) 80 mg in 100 mls @ 10 mls/hr IV Q10H RACQUEL Stop: 03/19/25 23:52 Last Infusion: 03/17/25 08:49 Dose: 0 mls/hr Octreotide Acetate 1,000 mcg/ (Sodium Chloride) 102 mls @ 5.1 mls/hr IV .Q20H [facility]; Protocol Stop: 03/18/25 01:40 Last Admin: 03/17/25 06:30 Dose: 50 mcg/hr, 5.1 mls/hr Octreotide Acetate 1,000 mcg/ (Sodium Chloride) 102 mls @ 5.1 mls/hr IV .Q20H RACQUEL; Protocol Stop: 03/22/25 06:29 Ceftriaxone Sodium/Dextrose (Rocephin/D5w 1gm Iv Premix) 1 gm in 50 mls @ 100 mls/hr IV QDAY [facility] Stop: 03/24/25 08:29 Last Admin: 03/17/25 08:51 Dose: 100 mls/hr Lorazepam (Lorazepam 0.5 Mg Tablet) 0.5 mg PO Q4HR PRN PRN Reason: CIWA Score 2-6 Stop: 03/22/25 05:37 Lorazepam (Lorazepam 0.5 Mg Tablet) 2 mg PO Q4HR PRN PRN Reason: CIWA SCORE 14-17 Stop: 03/22/25 05:37 Lorazepam (Lorazepam 2 Mg/Ml Vial) 2 mg IVP Q4HR PRN PRN Reason: CIWA>17 Stop: 03/22/25 06:46 Lorazepam (Lorazepam 0.5 Mg Tablet) 1 mg PO Q4HR PRN PRN Reason: CIWA SCORE 7-13 Stop: 03/22/25 05:37 Ondansetron HCl (Ondansetron Inj 2 Mg/Ml Inj 2 Ml) 4 mg IVP Q6H PRN; Protocol PRN Reason: NAUSEA OR VOMITING Stop: 04/16/25 05:37 Tamsulosin HCl (Tamsulosin Hcl 0.4 Mg Capsule) 0.4 mg PO QDAY [facility] Stop: 04/16/25 08:59 Last Admin: 03/17/25 08:47 Dose: 0.4 mg Thiamine HCl (Thiamine 100 Mg Tablet) 100 mg PO BID RACQUEL Stop: 03/22/25 08:59 Last Admin: 03/17/25 08:47 Dose: 100 mg Discontinued Medications Sodium Chloride (Ns) 1,000 mls @ 999 mls/hr IV .Q1H1M ONE Stop: 03/17/25 02:52 Last Infusion: 03/17/25 03:13 Dose: Infused Thiamine HCl 500 mg/ Sodium (Chloride) 105 mls @ 205 mls/hr IV X1 ONE Stop: 03/17/25 06:13 Last Infusion: 03/17/25 06:30 Dose: Infused Lorazepam (Lorazepam 0.5 Mg Tablet) 1 mg PO Q4HR PRN PRN Reason: CIWA SCORE 7-13 Stop: 03/22/25 05:37 Lorazepam (Lorazepam 0.5 Mg Tablet) 2 mg PO Q4HR PRN PRN Reason: CIWA SCORE 14-20 Stop: 03/22/25 05:37 Morphine Sulfate (Morphine Sulf Inj 4 Mg/Ml Vial) 4 mg IVP X1 ONE Stop: 03/17/25 01:53 Last Admin: 03/17/25 02:01 Dose: 4 mg Pantoprazole Sodium (Pantoprazole Inj 40 Mg Vial) 80 mg IVP X1 ONE Stop: 03/17/25 01:53 Last Admin: 03/17/25 02:03 Dose: 80 mg Pantoprazole Sodium (Pantoprazole Inj 40 Mg Vial) 40 mg IVP BID [facility] Stop: 04/16/25 08:59 Prochlorperazine Edisylate (Prochlorperazine Inj 5 Mg/Ml Vial 2 Ml) 2.5 mg IV X1 ONE; Protocol Stop: 03/17/25 01:53 Last Admin: 03/17/25 02:01 Dose: 2.5 mg Assessment & Plan Plan Summary:A 79-year-old male patient known case of alcohol use disorder, BPH, esophageal ulcers, gastritis, came to the ED due to multiple episodes of coffee- ground emesis associated with epigastric pain for 1 day. Patient reported that the vomiting was severe and he was unable to eat or drink. Patient was admitted for upper GI bleed workup #Upper GI bleed #History of esophageal ulcers #History of severe gastritis Patient presented with coffee-ground emesis, history of chronic alcohol use disorder. Hemoglobin stable at 12.1, liver enzymes and bilirubin within normal limits. EGD was done in 2020 after he experienced hematemesis and it was positive for nonbleeding esophageal ulcers and severe gastritis Plan ? Keep patient n.p.o. for possible EGD today ? Keep the patient on pantoprazole drip ? Keep the patient on octreotide drip ? Refer to social licensed club manager for alcohol use disorder ? Keep the patient on CIWA protocol, replete folic acid, thiamine #Newly diagnosed A-fib #History of severe BPH Plan ? Follow-up with the primary team recommendations Thank you for your consultation please do not hesitate to reach out if you have any question or concern - Patient's plan and care discussed with my attending, Dr. Ashwin Peterson MD Internal Medicine PGY-3 Attending Provider Attestation/Addendum Patient personally examined and evaluated I went over the assessment of internal medicine resident which I agree with Start the patient on clear liquid diet and n.p.o. midnight tonight Consent obtained for fiberoptic esophagogastroduodenoscopy with possible biopsy possible therapeutic intervention under intravenous moderate sedation Agree with IV Protonix
[2025-03-17 17:09] LABS: Amphetamine/Methamp Scrn,U Positive (Negative); Barbiturate Screen,Urine Negative (Negative); Benzodiazepines Screen,Urine Negative (Negative); Benzoylecgonine Screen, Ur Negative (Negative); Fentanyl Screen,Urine Negative (Negative); Opiate Screen,Urine Positive (Negative); THC Screen,Urine Negative (Negative)
[2025-03-18] VITALS (16 sets, daily range): BP systolic 113–178; BP diastolic 50–101; PULSE 61–85; RESP 13–20; TEMP 36.3–37.1; O2SAT 95–100; BMI 25.2
[2025-03-18] MEDS: OCTREOTIDE ACET INJ 1,000 MCG in SODIUM CHLORIDE 0.9% 100 ML 5.1 MCG IV (00:43)
[2025-03-18] MEDS: PANTOPRAZOLE/NS 80MG IV PREMIX 80 MG/100 ML BAG 10 MG IV ×2 (05:13→14:21)
[2025-03-18 05:40] LABS: Basophils # (Auto) 0.1 Thou/mm3 (0.0-0.2); Basophils % (Auto) 1 % (0-2.5); Eosinophils # (Auto) 0.4 Thou/mm3 (0.0-0.5); Eosinophils % (Auto) 6 % (0-10); Hematocrit 36.5 % (41.0-53.0); Hemoglobin 12.5 g/dL (13.5-16.0); Immature Granulocytes Auto 0.03 Thou/mm3 (0.00-0.00); Lymphocytes # (Auto) 1.2 Thou/mm3 (1.0-4.8); Lymphocytes % (Auto) 17 % (10-50); Mean Corpuscular HGB Conc 34.2 g/dl (31.0-37.0); Mean Corpuscular Hemoglobin 31.4 pg (25.0-35.0); Mean Corpuscular Volume 92 fL (80-100); Monocytes # (Auto) 1.0 Thou/mm3 (0.0-0.8); Monocytes % (Auto) 13 % (0-12); Neutrophils # (Auto) 4.7 Thou/mm3 (1.8-7.7); Neutrophils % (Auto) 63 % (37-80); Nucleated Red Blood Cell # 0.00 Thou/mm3 (0.00-0.00); Nucleated Red Blood Cell % 0 /100 WBC (0); Platelet Count 308 Thou/mm3 (140-440); RDW Standard Deviation 41.5 fL (35.1-43.9); Red Blood Count 3.98 Miln/mm3 (4.50-5.90); White Blood Count 7.5 Thou/mm3 (3.8-10.6)
[2025-03-18 05:47] LABS: INR 1.0 (0.9-1.3); Partial Thromboplastin Time 29.3 Seconds (22.0-36.0); Prothrombin Time 10.9 Seconds (9.0-12.2)
[2025-03-18 06:12] LABS: Anion Gap 10 (7-16); BUN/Creatinine Ratio 11 Ratio (12-20); Blood Urea Nitrogen 11 mg/dL (9-23); Calcium 8.4 mg/dL (8.3-10.6); Carbon Dioxide 23.8 mMol/L (20.0-31.0); Cardiac Risk Estimate 2.1 RATIO (4.0-6.7); Chloride 105 mMol/L (98-107); Cholesterol 165 mg/dL (132-200); Creatinine (Component) 1.0 mg/dL (0.6-1.3); Estimated Creatinine Clearance 43.1 mL/min (>60); Glucose 117 mg/dL (74-106); HDL Cholesterol 78 mg/dL (40-60); LDL Cholesterol,Calculated 75 mg/dL (0-130); Magnesium 1.8 mg/dL (1.6-2.6); Osmolality,Calculated 277 (275-295); Phosphorous 2.6 mg/dL (2.4-5.1); Potassium 3.8 mMol/L (3.4-5.1); Sodium 139 mMol/L (136-145); Triglycerides 61 mg/dL (30-150); eGFR > 60 See Note
[2025-03-18] MEDS: cefTRIAXone/D5w 1gm IV premix 1 GM/50 ML BAG IV (08:10)
[2025-03-18] MEDS: TAMSULOSIN HCL 0.4 MG CAPSULE PO (08:10)
[2025-03-18] MEDS: FOLIC ACID 1 MG TABLET PO ×2 (08:10→22:40)
[2025-03-18] MEDS: THIAMINE 100 MG TABLET PO ×2 (08:10→22:40)
--- NOTE | 2025-03-18 11:21 | ESPR_ITS ---
<Statement entered by Siddhartha Hartman MD - 03/18/25 20:51> I saw and examined patient personally and supervised PGY 1 resident, Dr. Kirkpatrick with formulating a management plan. I agree with the documentation with the exceptions as listed below. Patient admitted for GI bleed for investigation. Hb currently stable at 12.5. Patient continues to be on ceftriaxone 1 g IV daily, CIWA protocol, pantoprazole infusion and octreotide infusion for possible esophageal varices. Scheduled for EGD today. Plan of care discussed with Attending Dr. Bertha Hartman MD PGY 2 Disclaimer: This note was dictated by speech recognition. Minor errors in oil well services dispatcher may be present due to voice recognition software. Documentation for date of: 03/18/25 Subjective Subjective Interval history: No overnight events. Patient was examined at bedside; they appear A&Ox3 and in NAD. Vitals/labs today significant for Hgb 12.1->12.5. Physical exam was benign and unremarkable with no appreciation of irregular rhythm on cardiac auscultation. Patient is planned for upper endoscopy with GI to evaluate for active sites of bleeding today (had originally been scheduled for yesterday but this did not come to fruition). Exam Vital Signs Temp Pulse Resp BP Pulse Ox O2 Del Method O2 Flow Rate 97.5 F 74 16 126/50 L 96 Room Air 3 03/18/25 08:00 03/18/25 08:00 03/18/25 08:00 03/18/25 08:00 03/18/25 08:00 03/18/25 08:00 03/17/25 11:37 Narrative Exam General: No acute distress Eye: PERRL, EOMI, normal conjunctiva, no scleral icterus HENT: Normocephalic, atraumatic, normal hearing, moist oral mucosa Neck: Supple, non-tender, no JVD, no lymphadenopathy Lungs: Clear to auscultation bilaterally, non-labored respirations, symmetric chest rise, no use of accessory muscles Heart: Normal S1 and S2, no S3 or S4 appreciated. Normal rate and regular rhythm, no murmurs, rubs gallops, or edema. Peripheral pulses intact bilaterally, capillary refill brisk distally Abdomen: Soft, TTP epigastric, non-distended, normal bowel sounds. No guarding or rebound tenderness. Musculoskeletal: Normal range of motion and strength, no tenderness or swelling Skin: Skin is warm, dry, no rashes or lesions. Neurologic: Alert, awake and oriented x3. CN II-XII grossly intact. No focal neuro deficits. No signs of meningeal irritation noted. Psychiatric: Cooperative, appropriate mood and affect Objective Labs 03/19/25 04:53 03/19/25 04:53 Labs: Laboratory Results - last 24 hr 03/17/25 03/18/25 02:50 04:20 WBC 7.5 RBC 3.98 L Hgb 12.5 L Hct 36.5 L MCV 92 MCH 31.4 MCHC 34.2 RDW Std Deviation 41.5 Plt Count 308 D Neut % (Auto) 63 Lymph % (Auto) 17 [place] % (Auto) 13 H Eos % (Auto) 6 Baso % (Auto) 1 Neut # (Auto) 4.7 Lymph # (Auto) 1.2 [place] # (Auto) 1.0 H Eos # (Auto) 0.4 Baso # (Auto) 0.1 Immature Gran # (Auto) 0.03 H Absolute Nucleated RBC 0.00 Immature Gran % 0 Nucleated RBC % 0 PT 10.9 INR 1.0 APTT 29.3 Sodium 139 Potassium 3.8 Chloride 105 Carbon Dioxide 23.8 Anion Gap 10 BUN 11 Creatinine 1.0 Estim Creat Clear Calc 43.1 L eGFR > 60 BUN/Creatinine Ratio 11 L Glucose 117 H Calculated Osmolality 277 Calcium 8.4 Phosphorus 2.6 Magnesium 1.8 Triglycerides 61 Cholesterol 165 LDL Cholesterol, Calc 75 HDL Cholesterol 78 H Cholesterol/HDL Ratio 2.1 L Urine Opiates Screen Positive A Urine Fentanyl Screen Negative Ur Barbiturates Screen Negative U Amphetamin/Meth Scrn Positive A U Benzodiazepines Scrn Negative U Cocaine Metab Screen Negative U Marijuana (THC) Screen Negative Quality Measures Quality Measures VTE prophylaxis Advance care planning discussed with:: patient Assessment & Plan Assessment Current Active Medications: Generic Name Dose Route Start Last Admin Trade Name Freq PRN Reason Stop Dose Admin Acetaminophen 650 mg 03/17/25 05:38 Acetaminophen 325 Mg Tablet PO 04/16/25 05:37 Q6H PRN Fever >100.3 Acetaminophen 650 mg 03/17/25 05:38 Acetaminophen 325 Mg Tablet PO 04/16/25 05:37 Q6H PRN PAIN SCALE 1-3 (mild Folic Acid 1 mg 03/17/25 09:00 03/18/25 08:10 Folic Acid 1 Mg Tablet PO 03/22/25 08:59 1 mg BID RACQUEL Administration Pantoprazole Sodium 80 mg in 100 mls @ 10 mls/hr 03/17/25 01:53 03/18/25 05:13 Protonix/Ns 80mg Iv Premix IV 03/19/25 23:52 10 mls/hr Q10H RACQUEL Administration Octreotide Acetate 1,000 mcg/ 102 mls @ 5.1 mls/hr 03/18/25 02:30 03/18/25 00:43 Sodium Chloride IV 03/22/25 06:29 50 mcg/hr .Q20H RACQUEL 5.1 mls/hr Protocol Administration 50 MCG/HR Ceftriaxone Sodium/Dextrose 1 gm in 50 mls @ 100 mls/hr 03/17/25 08:30 03/18/25 08:10 Rocephin/D5w 1gm Iv Premix IV 03/24/25 08:29 100 mls/hr QDAY RACQUEL Administration Lorazepam 0.5 mg 03/17/25 05:38 Lorazepam 0.5 Mg Tablet PO 03/22/25 05:37 Q4HR PRN CIWA Score 2-6 Lorazepam 2 mg 03/17/25 06:49 Lorazepam 0.5 Mg Tablet PO 03/22/25 05:37 Q4HR PRN CIWA SCORE 14-17 Lorazepam 2 mg 03/17/25 06:47 Lorazepam 2 Mg/Ml Vial IVP 03/22/25 06:46 Q4HR PRN CIWA>17 Lorazepam 1 mg 03/17/25 06:52 Lorazepam 0.5 Mg Tablet PO 03/22/25 05:37 Q4HR PRN CIWA SCORE 7-13 Ondansetron HCl 4 mg 03/17/25 05:38 Ondansetron Inj 2 Mg/Ml Inj 2 Ml IVP 04/16/25 05:37 Q6H PRN NAUSEA OR VOMITING Protocol Tamsulosin HCl 0.4 mg 03/17/25 09:00 03/18/25 08:10 Tamsulosin Hcl 0.4 Mg Capsule PO 04/16/25 08:59 0.4 mg QDAY RACQUEL Administration Thiamine HCl 100 mg 03/17/25 09:00 03/18/25 08:10 Thiamine 100 Mg Tablet PO 03/22/25 08:59 100 mg BID RACQUEL Administration Plan Mr. Hollis is a 79 y/o male with PMH EtOH use disorder, esophageal varices, and gastritis who presented to the ED 03/16 with 6-7 episodes of coffee ground emesis and epigastric pain x 1 day. Admitted for GI bleed. #GI bleed for investigation #EtOH use disorder #Hx of esophageal varices #Gastritis #Large hiatal hernia #Obstruction of distal stomach #Normocytic anemia 6-7 episodes coffee ground emesis and epigastric pain x1 days. AOx3, no ascites appreciated on exam. Hgb stable, on admit 12.9, HCT 36.2 CT a/p showed large hiatal hernia w/ obstruction of distal stomach. Colonic diverticulosis w/o diverticulitis. 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 Mild b/l hydroureteronephrosis Dx: -03/17 admission UDS positive for opiates and amphetamine/methamphetamine but negative for alcohol -Lipid panel WNL Plan: - Patient is planned for possible EGD today to evaluate for active sites of bleeding - IV ceftriaxone 1 g qD - Pantoprazole 80 mg IV q10h - Octreotide gtt with blood glucose checks q6HR - Zofran PRN - CIWA - Folic acid and thiamine. Given 1x dose thiamine 500 mg IV. - CTM hgb with daily CBC. Transfuse pRBC if hgb <7 - Consulted GI, appreciate recs #Paroxysmal atrial fibrillation Seen on EKG, rate controlled, not on home meds On 03/18 physical exam, heart rate seems to be regular rate and rhythm CHADSVASC: 2, HASBLED: 2 Rx: -Hold anticoagulation given GI bleed #BPH Suspected from patient's home patient of tamsulosin Rx: -Continue home PO tamsulosin 0.4 mg qD -Bladder scan QSHIFT -In and out catheter prn #Mild leukocytosis On admit 11.7 i/s/o GI bleed Plan: - CTM with daily CBC Checklist Dispo: Admit to tele, possible EGD Diet: NPO (pending upper endoscopy) Bowel Reg: n/a VTE ppx: SCD GI ppx: pantoprazole IV Pain mgmt: Tylenol PRN Code status: full Plan discussed with Dr. Hartman and Dr. Bishwakarma Ryan Kirkpatrick, DO (PGY-1) Attending Provider Attestation/Addendum I have seen and examined the patient. I was physically present for the weathers portions of the services provided including history, physical exam, diagnosis, treatment plans and orders. I agree with assessment and plan of care as documented by residents. Even though this this note was carefully revised there may still be minor errors in oil well services dispatcher due to voice recognition software. Nishant Stone MD
--- NOTE | 2025-03-18 12:28 | PC.SS ---
Update: EGD pending, Patient will discharge home when medically cleared.
--- NOTE | 2025-03-18 20:10 | SUR.PHASEI ---
2009 patient arrived to recovery, report received from Fifi WHITING
--- NOTE | 2025-03-18 20:45 | SUR.OPER ---
2039 report given to Ermelinda WHITING, patient meets discharge criteria from recovery, awake and alert, breathing unlabored, vital signs stable, denies pain and nausea, ate two jello and drinking juice; tolerated well 2044 patient transported via gurney to room 379 without incident, patient able to transfer himself from gurney to bed, Michael SLOAN prompting in patient room
[2025-03-19] VITALS: BP 119/68; PULSE 68; RESP 15; TEMP 37.2; O2SAT 98
[2025-03-19] MEDS: OCTREOTIDE ACET INJ 1,000 MCG in SODIUM CHLORIDE 0.9% 100 ML 5.1 MCG IV (02:10)
[2025-03-19] MEDS: PANTOPRAZOLE/NS 80MG IV PREMIX 80 MG/100 ML BAG 10 MG IV (02:17)
[2025-03-19 04:00] VITALS: BP 109/64; PULSE 62; PULSE 63; RESP 16; TEMP 36.9; O2SAT 97
[2025-03-19 05:59] LABS: Basophils # (Auto) 0.1 Thou/mm3 (0.0-0.2); Basophils % (Auto) 1 % (0-2.5); Eosinophils # (Auto) 0.6 Thou/mm3 (0.0-0.5); Eosinophils % (Auto) 7 % (0-10); Hematocrit 36.1 % (41.0-53.0); Hemoglobin 12.0 g/dL (13.5-16.0); Immature Granulocytes Auto 0.04 Thou/mm3 (0.00-0.00); Lymphocytes # (Auto) 1.2 Thou/mm3 (1.0-4.8); Lymphocytes % (Auto) 15 % (10-50); Mean Corpuscular HGB Conc 33.2 g/dl (31.0-37.0); Mean Corpuscular Hemoglobin 30.6 pg (25.0-35.0); Mean Corpuscular Volume 92 fL (80-100); Monocytes # (Auto) 1.0 Thou/mm3 (0.0-0.8); Monocytes % (Auto) 12 % (0-12); Neutrophils # (Auto) 5.3 Thou/mm3 (1.8-7.7); Neutrophils % (Auto) 65 % (37-80); Nucleated Red Blood Cell # 0.00 Thou/mm3 (0.00-0.00); Nucleated Red Blood Cell % 0 /100 WBC (0); Platelet Count 308 Thou/mm3 (140-440); RDW Standard Deviation 41.1 fL (35.1-43.9); Red Blood Count 3.92 Miln/mm3 (4.50-5.90); White Blood Count 8.2 Thou/mm3 (3.8-10.6)
[2025-03-19 06:00] VITALS: BMI 25.2
[2025-03-19 06:26] LABS: Anion Gap 9 (7-16); BUN/Creatinine Ratio 10 Ratio (12-20); Blood Urea Nitrogen 11 mg/dL (9-23); Calcium 8.1 mg/dL (8.3-10.6); Carbon Dioxide 25.1 mMol/L (20.0-31.0); Chloride 103 mMol/L (98-107); Creatinine (Component) 1.1 mg/dL (0.6-1.3); Estimated Creatinine Clearance 39.1 mL/min (>60); Glucose 109 mg/dL (74-106); Magnesium 1.7 mg/dL (1.6-2.6); Osmolality,Calculated 274 (275-295); Phosphorous 2.8 mg/dL (2.4-5.1); Potassium 3.6 mMol/L (3.4-5.1); Sodium 137 mMol/L (136-145); eGFR > 60 See Note
[2025-03-19 07:52] VITALS: BP 121/69; PULSE 60; RESP 13; TEMP 36.8; O2SAT 95
[2025-03-19 08:00] VITALS: PULSE 65
[2025-03-19] MEDS: cefTRIAXone/D5w 1gm IV premix 1 GM/50 ML BAG IV (08:20)
[2025-03-19] MEDS: FOLIC ACID 1 MG TABLET PO (08:21)
[2025-03-19] MEDS: TAMSULOSIN HCL 0.4 MG CAPSULE PO (08:21)
[2025-03-19] MEDS: THIAMINE 100 MG TABLET PO (08:21)
--- NOTE | 2025-03-19 10:47 | PC.NURSE ---
No nausea/vomiting after CLD breakfast, advanced diet order per Dr Christopher for lunch
[2025-03-19 12:00] VITALS: BP 125/66; PULSE 56; PULSE 68; RESP 17; TEMP 36.4; O2SAT 96
--- NOTE | 2025-03-19 12:07 | PD.RESDS ---
Planned Discharge Date 03/19/25 DS: Providers Provider Date of admission: 03/17/25 05:38 Primary care physician: Physician No Primary/Family Admitting Provider: Jennifer Morgan MD Attending Provider on Admission: Nishant Stone MD Consults: 03/17/25 05:42 Consult to Gastroenterology Stat Comment: Consulting Provider: Amberly Christopher 03/17/25 10:58 Health Equity Referral - Knowledge Deficit Routine Comment: Positive screening for knowledge deficit needs. Attending Provider on DC: Alise Ramos MD Discharging Provider: Alise Ramos MD DS: Diagnosis Problem List Completed Was Problem List Reviewed/Reconciled?: Yes Hospital Course Hospital Course Hospital course: Patient is a 79 year old male with a past medical history of gastritis, ulcers, diverticulosis, paroxysmal atrial fibrillation that resolved with admission, BPH who was admitted on 03/17/2025 for acute upper GI bleed with normocytic anemia scheudle for EGD. EGD noted for gastritis and ulcers. Large hiatal hernia noted, may require a further work up with gastroenterology. Primary may need referral if symptoms continued. Continue Protonix. ED course: VSS. Labs significant for WBC 11.7, hgb 12.9. HCT 36.2, Na 131, K 3.3, Cl 88. Coags and LFTs WNL. UA negative for UTI. EKG showed afib, HR 75, QTc 498. CT a/p showed large hiatal hernia w/ obstruction of distal stomach. Colonic diverticulosis w/o diverticulitis. 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 Mild b/l hydroureteronephrosis. Given 1L NS, morphine, prochlorperazine, pantoprazole IV. Instructions: -Please continue to take omeprazole for your hernia and gastritis -Continue Benign Prostatic Hyperplasia medication -Please take soft bland food as part of your formal diet. -Please follow up with your primary care provider within one week of discharge -If your symptoms worsen,please seek immediate medical attention and return to your nearest emergency room -If you do not have a primary care provider, you may follow up at the community healthcare system at [address], [place] [address], #Gastritis #Large hiatal hernia #Upper GI bleed, likely secondary to gastritis #Acute normocytic Anemia #Obstruction of distal stomach #Alcohol Use Disorder #History of esophageal varieces #parosyxmal atrial fibrillation, convereted #BPH #leukocytosis, resolved. - The patient's plan was discussed with attending Dr. Bertha Ramos MD PGY2 Internal Medicine Time Spent with Patient Time attestation: Total time spent providing and/or coordinating discharge services: 33 minutes Time spent: Greater than 30 minutes Exam Vital Signs Temp Pulse Resp BP Pulse Ox O2 Del Method O2 Flow Rate 98.2 F 65 13 121/69 95 Room Air 3 03/19/25 07:52 03/19/25 08:00 03/19/25 07:52 03/19/25 07:52 03/19/25 07:52 03/19/25 07:52 03/18/25 20:05 Narrative Exam General Appearance: Alert & Oriented X3, well-nourished male who is lying in bed in no acute distress HEENT: Skull symmetrical and atraumatic. Conjunctivae pin and moist. Pupils equal, round, reactive to light and accommodation (PERRL). External ear without lesion or discharge. Straight, nares patient, mucosa pink, no discharge. No thyroid nodule appreciated. No cervical lymphadenopathy. Cardio: Normal Rate and Rhythm with S1 and S2 heart sounds. No murmurs or extra heart sounds auscultated. No bruits on carotid auscultation. No peripheral edema or cyanosis. Lungs: Symmetric with good expansion. Chest and back non-tender. Breath sounds vesicular without crackles, wheezing or rhonchi Abdomen: Non-tender, Non-distended, Normal Reactive Bowel Sounds Neuro: Alert, cooperative, oriented to person, place, and time. Speech clear. CN grossly intact. Upper motor strength 5/5 and Lower motor strength 5/5. Sensation intact. Discharge Plan Plan Patient Disposition: HOME (Self Care) Patient condition on transfer: Stable Care Plan Goals: Instructions: -Please continue to take omeprazole for your hernia and gastritis -Continue Benign Prostatic Hyperplasia medication -Please take soft bland food as part of your formal diet. -Please follow up with your primary care provider within one week of discharge -If your symptoms worsen,please seek immediate medical attention and return to your nearest emergency room -If you do not have a primary care provider, you may follow up at the community healthcare system at [address], [place] [address], Instrucciones: - Contin?e tomando omeprazol para la hernia y la gastritis. - Contin?e con la medicaci?n para la hiperplasia prost?ronda benigna. - Consuma alimentos blandos y suaves geeta parte de zimmer dieta. - Acuda a zimmer m?dico de cabecera dentro de la semana posterior al va. - Si berto s?ntomas empeoran, busque atenci?n m?dica de inmediato y regrese a la vernon de urgencias m?s cercana. - Si no tiene un m?dico de cabecera, puede acudir al centro m?dico acad?manny ubicado en [address], [place] [address], tel?fono . Prescriptions/Referrals Prescriptions/Med Rec: Continued tamsulosin 0.4 mg capsule 0.4 mg PO QHS pantoprazole [Protonix] 40 mg Tablet,Delayed Release (/Ec) 40 mg PO QDAY Qty: 30 2RF Referrals: [facility] [Outside] No Primary/Family,Physician [Primary Care Provider] Patient/Caregiver Discharge Instructions Discharge Activity: activity as tolerated Education Materials: What Is a Hiatal Hernia?, ED PEPTIC ULCER vs GASTRITIS Print Language: Algerian Stand Alone Forms: [employer]ra Award Info., Patient Portal Info Letter Discharge Order Discharge Orders: Discharge (Routine); Ordered 03/19/25 Ordered By: Alise Ramos Quality Discharge Quality Measures VTE prophylaxis (compression device) Attestestation MD Attestation I have seen and examined the patient. I was physically present for the weathers portions of the services provided including history, physical exam, diagnosis, treatment plans and orders. I agree with assessment and plan of care as documented by residents. Even though this this note was carefully revised there may still be minor errors in plastic welder due to voice recognition software. Nishant Stone MD
--- NOTE | 2025-03-19 22:01 | ESPR_ITS ---
Documentation for date of: 03/19/25 Subjective Subjective Interval history: late entry for the note hemoglobin hematocrit 12.0 and 36.1 Upper endoscopy showed gastritis and esophagitis Case discussed with internal medicine team Okay to discharge patient on a PPI to be followed by the PCP Exam Vital Signs Temp Pulse Resp BP Pulse Ox O2 Del Method O2 Flow Rate 97.6 F 56 L 17 125/66 96 Room Air 3 03/19/25 12:00 03/19/25 12:00 03/19/25 12:00 03/19/25 12:00 03/19/25 12:00 03/19/25 12:00 03/18/25 20:05 Objective Labs 03/19/25 04:53 03/19/25 04:53 Labs: Laboratory Results - last 24 hr 03/19/25 04:53 WBC 8.2 RBC 3.92 L Hgb 12.0 L Hct 36.1 L MCV 92 MCH 30.6 MCHC 33.2 RDW Std Deviation 41.1 Plt Count 308 Neut % (Auto) 65 Lymph % (Auto) 15 [place] % (Auto) 12 Eos % (Auto) 7 Baso % (Auto) 1 Neut # (Auto) 5.3 Lymph # (Auto) 1.2 [place] # (Auto) 1.0 H Eos # (Auto) 0.6 H Baso # (Auto) 0.1 Immature Gran # (Auto) 0.04 H Absolute Nucleated RBC 0.00 Immature Gran % 1 H Nucleated RBC % 0 Sodium 137 Potassium 3.6 Chloride 103 Carbon Dioxide 25.1 Anion Gap 9 BUN 11 Creatinine 1.1 Estim Creat Clear Calc 39.1 L eGFR > 60 BUN/Creatinine Ratio 10 L Glucose 109 H Calculated Osmolality 274 L Calcium 8.1 L Phosphorus 2.8 Magnesium 1.7 Impressions Impression: Coffee-ground hematemesis secondary to esophagitis and erosive gastritis Okay to discharge patient home on a PPI to be followed by PCP Assessment & Plan Time Spent With Patient Time: Total time spent is greater than 50% in coordination of care (as documented) at patient's floor/unit and/or counseling patient:
== END 2025-03-19 14:59 | disposition home or self-care (01) | DRG 378 ==
LOC: SERX 04:53 → SERHOLD 06:06 → S3SX 13:15
PROVIDERS: Specialist; Admitting Provider Student in an Organized Health Care Education/Training Program; Emergency Provider Emergency Medicine; Visit Provider Student in an Organized Health Care Education/Training Program
PROC: 0DJ08ZZ Inspection of Upper Intestinal Tract, Via Natural or Artificial Opening Endoscopic (ICD-10-PCS; CPT 43239; principal; 2025-03-18 17:00)
DX: K29.71 Gastritis, unspecified, with bleeding (principal); D62 Acute posthemorrhagic anemia; K44.0 Diaphragmatic hernia with obstruction, without gangrene; N13.30 Unspecified hydronephrosis; K22.11 Ulcer of esophagus with bleeding; I85.00 Esophageal varices without bleeding; K57.30 Diverticulosis of large intestine without perforation or abscess without bleeding; I48.0 Paroxysmal atrial fibrillation; D64.89 Other specified anemias; N32.89 Other specified disorders of bladder; N32.3 Diverticulum of bladder; N40.0 Benign prostatic hyperplasia without lower urinary tract symptoms; F10.10 Alcohol abuse, uncomplicated; K45.8 Other specified abdominal hernia without obstruction or gangrene; F17.210 Nicotine dependence, cigarettes, uncomplicated; Z87.19 Personal history of other diseases of the digestive system
CPT/HCPCS: 36415; 74177; 80048; 80053; 80061; 80307; 80320; 81001; 83735; 84100; 84484; 85025; 85610; 85730; 86850; 86900; 86901; 93005; 93225; 96365; 96366; 96375; 99284; A4649; J0696; J0780; J1200; J2250; J2270; J2354; J2470; J3010; J3411; J3490; J7030; J7050; Q9967; A9270; G0480